=== PATIENT | female | born 1965 | race Caucasian/White ===

== ENCOUNTER 2024-10-30 09:00 | Outpatient (AMB) | payer MEDICAID, SELFPAY ==
[2024-10-30 10:02] VITALS: BP 116/74; PULSE 86; RESP 18; TEMP 35.9; O2SAT 96; BMI 42.5
--- NOTE | 2024-10-30 10:02 | ORTHONT_ITS ---
Vital signs 10/30/24 10:02 Height 1.78 m Height Method Stated Weight 134.433 kg Weight Measurement Method Standing Scale BMI 42.5 BP 116/74 Blood Pressure Source Automatic Cuff Blood Pressure Location Right Upper Arm Position Sitting Respiration 18 Pulse 86 Pulse Source Monitor Temp 96.7 F L Temp Source Temporal Artery Scan Pulse Oximetry (%) 96 Oxygen Delivery Method Room Air Med/Allergies Allergies & Medications Allergies codeine Allergy (Mild, Verified 10/30/24 10:04) Redness of Skin Sulfa (Sulfonamide Antibiotics) Allergy (Mild, Verified 10/30/24 10:04) Rash Penicillins Allergy (Unknown, Verified 10/30/24 10:04) Rash Medication Reconciliation apixaban 5 mg tablet (Eliquis) 5 mg PO BID 12/02/23 [History Confirmed 10/30/24] albuterol sulfate 90 mcg/actuation aerosol inhaler 2 puff inhalation QID PRN SOB 05/19/24 [History Confirmed 10/30/24] budesonide-formoterol HFA 160 mcg-4.5 mcg/actuation aerosol inhaler (Symbicort) 2 puff inhalation BID 05/19/24 [History Confirmed 10/30/24] clonazepam 1 mg tablet 1 mg PO QDAY 05/19/24 [History Confirmed 10/30/24] cyclobenzaprine 10 mg tablet 10 mg PO TID PRN Pain 05/19/24 [History Confirmed 10/30/24] famotidine 40 mg tablet 40 mg PO QDAY 05/19/24 [History Confirmed 10/30/24] fexofenadine 180 mg tablet (Allergy Relief (fexofenadine)) 180 mg PO QDAY 05/19/24 [History Confirmed 10/30/24] hydrocodone 10 mg-acetaminophen 325 mg tablet 1 tab PO PRN PRN Pain 05/19/24 [History Confirmed 10/30/24] metoprolol succinate 25 mg tablet,extended release 24 hr 25 mg PO QDAY 05/19/24 [History Confirmed 10/30/24] omeprazole 40 mg capsule,delayed release 40 mg PO QDAY 05/19/24 [History Confirmed 10/30/24] semaglutide 1 mg/dose (4 mg/3 mL) subcutaneous pen injector (Ozempic) 1 mg subcut QWEEK 05/19/24 [History Confirmed 10/30/24] Subjective Visit Visit for: new patient and knee Immunization / Flu Flu Vaccine in the Last 12 Months: No Flu Vaccine Exclusion Criteria: No Exclusion Criteria History of Present Illness Chief complaint: KNEE PAIN Dmitri is a pleasant 59-year-old female with bilateral knee pain. This been ongoing for over 10 years. She has tried knee braces and injections. She has a lso tried physical therapy. She has significant medical complications. She is trying to lose weight. Pain Pain level (0-10): 10 Pain duration: CONSTANT Pain location: inside (medial), outside (lateral), anterior and posterior Pain quality: sharp, dull and aching Pain timing: night, increases with activity and stairs Associated signs & symptoms: stiffness Ambulatory data Ambulatory device: none Treatments Improvement with previous injections: No Improvement with PT: No Improvement with NSAIDS: n/a Review of Systems Review of Systems: All systems negative unless otherwise noted in HPI. Exam Exam Patient is in no acute distress and is cooperative with the examination today. Breathing is nonlabored. In no respiratory distress. Bilateral extremities were evaluated and demonstrates sensation intact to light touch. Palpable pedal pulses are present. No significant edema is present. Bilateral hips were examined. The patient has no pain with log roll of the hips. Internal rotation to 30 degrees and external rotation to 30 degrees is painless. Negative FADIR. The left knee was examined. The left knee is in [varus] alignment. Range of motion from [0-115] degrees. Knee is stable to varus and valgus as well as AP translation with <5mm. Patient has a [negative] McMurrays. There is [no] pain with patellofemoral compression and [no] crepitus noted. The knee is [tender] to palpation [medially]. The right knee was also examined. The right knee is in [varus] alignment. Range of motion from [0-120] degrees. Knee is stable to varus and valgus as well as AP translation with <5mm. Patient has a [negative] McMurrays. There is [no] pain with patellofemoral compression and [no] crepitus noted. The knee is [tender] to palpation [medially]. Nonweightbearing x-rays were reviewed by me. This demonstrates bilateral knee arthritis. Assessment and Plan Problem List (1) Degenerative arthritis of knee, bilateral: Status: Acute Plan: Patient is a 59-year-old female with significant medical comorbidities including COPD, history of PE, aortic aneurysm, with bilateral knee pain and arthritis. She has a significant bilateral knee arthritis. We thus discussed conservative treatment options. We will do bilateral knee injections today. We also recommended weight loss Recommend knee cortisone injections as patient would like to proceed with conservative treatment at this time. The risks and benefits of the procedure were reviewed with the patient and patient gave verbal consent to continue with the procedure. Procedure: performed by Dr. Ramirez Using sterile technique the Bilateral knees were thoroughly prepped with alcohol, and approximately 1 cc of Kenalog 40 mg/mL and 4 cc of 1% lidocaine was injected into each knee without resistance into the medial tibial femoral joint space. The patient tolerated the procedure. Office Procedures GNS Level of Care Nursing/Assessment Patient Status: Established Patient Nursing Assessment/Reassesment: Medication Reconciliation, Update PMH in EMR and Vital Signs Coordination of Care: Complex Care/Chronic Disease 5 or more, Education Complex Pt/Fam, Consent,records obtained, informed consent, Results/Orders obtained and Staff clarify orders Established Patient Charge Established Patient Point Assignment: 105 Established Patient Point Charge: EP Level 3 (80-115) Surgical Proc/IM SQ injection Major Surgical Procedure: Yes (BILATERAL KNEE INJECTION ) Medication Given Medication Given Medication Given: Yes Documented Dose Given: 8 Route: Infiitration Medication Given Medication Given Medication Given: Yes Documented Dose Given: 8 Route: Infiitration Medication Given Medication Given Medication Given: Yes Documented Dose Given: 2 Route: Infiitration Medication Given Medication Given Medication Given: Yes Documented Dose Given: 2 Route: Infiitration Office Meds Xylocaine 10 mg/mL (1 %) injection solution Performing Provider: Devan Ramirez MD Performing Location: [facility] Administered by: Devan Ramirez MD on 10/30/24 12:02 Dose Route Admin Location Dispensed Lot Number Expiration Date [facility] [employer] 40 mL Infiltration 40 mL [id number] [employer] Xylocaine 10 mg/mL (1 %) injection solution Performing Provider: Devan Ramirez MD Performing Location: [facility] Administered by: Devan Ramirez MD on 10/30/24 12:02 Dose Route Admin Location Dispensed Lot Number Expiration Date [facility] [employer] 40 mL Infiltration 40 mL [id number] [employer] triamcinolone acetonide 40 mg/mL suspension for injection Performing Provider: Devan Ramirez MD Performing Location: [facility] Administered by: Devan Ramirez MD on 10/30/24 12:02 Dose Route Admin Location Dispensed Lot Number Expiration Date [place] [employer] 80 mg intra-articular 2 mL [id number] [employer] triamcinolone acetonide 40 mg/mL suspension for injection Performing Provider: Devan Ramirez MD Performing Location: [facility] Administered by: Devan Ramirez MD on 10/30/24 12:02 Dose Route Admin Location Dispensed Lot Number Expiration Date [place] [employer] 80 mg intra-articular 2 mL [id number] [employer] Past Medical History Past Medical History Have you ever been diagnosed with any of the following: Neurological Problems Seizures: No Migraine: Yes Cardiology Problems Angina: Yes Hypercholesterolemia: Yes Aneurysm: Yes Congestive Heart Failure: No Hypertension: Yes Respiratory Problems Chronic Obstructive Pulmonary Disease (COPD): Yes Asthma: Yes Bronchitis: Yes Emphysema: No Pneumonia: Yes Tuberculosis: No Smoking: No Smoking Exposure: No Stomache/Intestinal Problems Gastroesophageal Reflux Disease: Yes Genital/Urinary Problems Renal Disease: No Musculoskeletal Problems Fibromyalgia: Yes Endocrine Problems Diabetes Mellitus Type 1: No Diabetes Mellitus Type 2: No Blood Problems Sickle Cell Disease: No Psychologic Problems Anxiety: Yes Other Problems Blood Transfusions: No Blood Transfusion Reaction: No Anesthesia Reactions: No Chicken Pox: Yes Cancer: No
== END 2024-10-30 10:21 | disposition home or self-care (01) ==
LOC: HODSRG 09:00
PROVIDERS: PCP Nurse Practitioner Family; Referring Provider Nurse Practitioner Family; Supervising Provider Orthopaedic Surgery Adult Reconstructive Orthopaedic Surgery; Visit Provider Orthopaedic Surgery Adult Reconstructive Orthopaedic Surgery
DX: M17.0 Bilateral primary osteoarthritis of knee (principal); I10 Essential (primary) hypertension; E78.00 Pure hypercholesterolemia, unspecified; J44.89 Other specified chronic obstructive pulmonary disease; Z86.711 Personal history of pulmonary embolism; K21.9 Gastro-esophageal reflux disease without esophagitis
CPT/HCPCS: 20610; 99213; J3301; J3490; G0463

== ENCOUNTER → 2024-10-31 | Outpatient (CLI) | payer MEDICAID, SELFPAY ==
--- NOTE | 2024-10-31 14:00 | XR_ITS ---
Examination: MRI cervical spine without intravenous contrast Date and time of exam: October 31, 2024 1443 hrs. Indications: Neck pain 20 years radiating down both shoulders Technique: Multiple axial and sagittal sections of the cervical spine to been obtained. T2 weighted sagittal sections, TR 3, 270, TE 117 T1-weighted sagittal sections, TR 500, TE 11 T1-weighted axial sections, TR 607, TE 12, axial sections TR 18, TE 27 and T2 weighted transverse sections, TR 3920, TE 122. Findings: Adequate alignment cervical vertebral bodies on the lateral view Mild to moderate disc narrowing C4-C5, C5-C6, C6-C7 No cervical fracture Diffuse cervical disc desiccation No localized enlargement cervical cord C2-C3 no disc protrusion C3-C4 no disc protrusion C4-C5 3 mm central right paracentral osteophyte disc complex C5-C6 3 mm central subarticular osteophyte disc complex indenting the ventral margin cervical cord C6-C7 3 mm central subarticular osteophyte disc complex C7-T1 no disc protrusion Impression: Mild to moderate degenerative disc disease C4-C5, C5-C6, C6-C7 All of the axial images are degraded by patient motion C4-C5 Central right paracentral 3 mm osteophyte disc complex C5-C6 central subarticular 3 mm osteophyte disc complex C6-C7 central subarticular 3 mm osteophyte disc complex Recommend this patient return for nonmotion degraded axial images of the cervical spine
--- NOTE | 2024-10-31 14:30 | XR_ITS ---
Examination: MRI lumbar spine without contrast Date and time of exam: October 31, 2024 1502 hrs. Indications: Low back pain radiating down both legs 20 years Technique: Multiple MRI axial and sagittal sections lumbar spine. Sagittal T2-weighted images, TR 3500, TE 118 T1 weighted transverse sections, TR 688 T8.5, T2-weighted sagittal sections T1 weighted sagittal sections TR 621, TE 30 T2 axial sections, TR 4, 190, TE 84. Findings: Independent Sales Representative film lumbar dextroscoliosis 10 degrees Adequate alignment lumbar vertebral bodies on the lateral view Mild disc narrowing L3-L4 Diffuse lumbar disc desiccation No spondylolisthesis L5-S1 no disc protrusion L4-L5 no disc protrusion L3-L4 no disc protrusion L2-L3 no disc protrusion L1-L2 no disc protrusion Incidental note moderate right mild left renal parenchymal scar formation Impression: Diffuse lumbar degenerative disc disease No significant acquired spinal stenosis
== END | disposition home or self-care (01) ==
LOC: SMRI 14:15
PROVIDERS: PCP Nurse Practitioner Family; Referring Provider Nurse Practitioner Family; Visit Provider Nurse Practitioner Family
DX: M50.321 Other cervical disc degeneration at C4-C5 level (principal); M25.78 Osteophyte, vertebrae; M51.369 Other intervertebral disc degeneration, lumbar region without mention of lumbar back pain or lower extremity pain
CPT/HCPCS: 72141; 72148

== ENCOUNTER → 2024-11-03 | Outpatient (CLI) | payer MEDICAID, SELFPAY ==
--- NOTE | 2024-11-03 13:33 | XR_ITS ---
Examination: MRI thoracic spine without contrast. Date and time of exam: November 03, 2024 1409 hours INDICATIONS: Mid back pain 20 years radiating down both legs Technique: Multiple sagittal and axial images of the thoracic spine have been obtained. T1 weighted localizer, sagittal T2 weighted images, TR 30-50, TE 148, T1 weighted sagittal images, TR 650, TE 14, T2-weighted transverse images, TR 6770, TE 142 Findings: Moderately compression fracture T8, old Diffuse thoracic disc desiccation No focal disc protrusions impinging upon the thoracic cord No localized enlargement thoracic cord No abnormal marrow signal thoracic vertebral bodies Impression: Mild diffuse thoracic degenerative disc disease Moderate old compression fracture T8 No significant acquired spinal stenosis
--- NOTE | 2024-11-03 13:39 | XR_ITS ---
Examination: Bilateral knees 2 views Right lateral knee left lateral knee 2 views Right axial knee left axial knee 2 views TECHNIQUE: Bilateral AP knees standing single view, bilateral PA knees standing single view 30 degrees flexion Staining right lateral knee left lateral knee Right axial knee left axial knee 2 views, total 6 views Exam date and time: November 03, 2024 1425 hours INDICATIONS: Bilateral knee pain beginning 2 months ago. FINDINGS: Prominent osteopenia Bilateral moderate to advanced tricompartment osteoarthritis, most severe lateral joint spaces both knees No fracture or dislocation involving either knee Significant osteoarthritis patellofemoral joints IMPRESSION: Bilateral moderate to advanced tricompartment osteoarthritis
== END | disposition home or self-care (01) ==
PROVIDERS: PCP Nurse Practitioner Family; Referring Provider Nurse Practitioner Family; Visit Provider Nurse Practitioner Family
DX: M17.0 Bilateral primary osteoarthritis of knee (principal); M51.34 Other intervertebral disc degeneration, thoracic region; Z87.81 Personal history of (healed) traumatic fracture
CPT/HCPCS: 72146; 73565

== ENCOUNTER 2025-01-29 09:40 | Outpatient (AMB) | payer MEDICAID, SELFPAY ==
--- NOTE | 2025-01-29 10:02 | PD.ORTHCLVIS ---
Vital signs 01/29/25 10:03 Height 1.78 m Height Method Stated Weight 131.57 kg Weight Measurement Method Standing Scale BMI 41.5 BP 109/77 Blood Pressure Source Automatic Cuff Blood Pressure Location Right Lower Arm Position Sitting Respiration 19 Pulse 84 Pulse Source Monitor Temp 95.6 F L Temp Source Temporal Artery Scan Pulse Oximetry (%) 94 L Oxygen Delivery Method Room Air Med/Allergies Allergies & Medications Allergies codeine Allergy (Mild, Verified 01/29/25 10:03) Redness of Skin Sulfa (Sulfonamide Antibiotics) Allergy (Mild, Verified 01/29/25 10:03) Rash Penicillins Allergy (Unknown, Verified 01/29/25 10:03) Rash Medication Reconciliation apixaban 5 mg tablet (Eliquis) 5 mg PO BID 12/02/23 [History Confirmed 01/29/25] albuterol sulfate 90 mcg/actuation aerosol inhaler 2 puff inhalation QID PRN SOB 05/19/24 [History Confirmed 01/29/25] budesonide-formoterol HFA 160 mcg-4.5 mcg/actuation aerosol inhaler (Symbicort) 2 puff inhalation BID 05/19/24 [History Confirmed 01/29/25] clonazepam 1 mg tablet 1 mg PO QDAY 05/19/24 [History Confirmed 01/29/25] cyclobenzaprine 10 mg tablet 10 mg PO TID PRN Pain 05/19/24 [History Confirmed 01/29/25] famotidine 40 mg tablet 40 mg PO QDAY 05/19/24 [History Confirmed 01/29/25] fexofenadine 180 mg tablet (Allergy Relief (fexofenadine)) 180 mg PO QDAY 05/19/24 [History Confirmed 01/29/25] hydrocodone 10 mg-acetaminophen 325 mg tablet 1 tab PO PRN PRN Pain 05/19/24 [History Confirmed 01/29/25] metoprolol succinate 25 mg tablet,extended release 24 hr 25 mg PO QDAY 05/19/24 [History Confirmed 01/29/25] omeprazole 40 mg capsule,delayed release 40 mg PO QDAY 05/19/24 [History Confirmed 01/29/25] semaglutide 1 mg/dose (4 mg/3 mL) subcutaneous pen injector (Ozempic) 1 mg subcut QWEEK 05/19/24 [History Confirmed 01/29/25] Exam Exam Patient is in no acute distress and is cooperative with the examination today. Breathing is nonlabored. In no respiratory distress. Bilateral extremities were evaluated and demonstrates sensation intact to light touch. Palpable pedal pulses are present. No significant edema is present. Bilateral hips were examined. The patient has no pain with log roll of the hips. Internal rotation to 30 degrees and external rotation to 30 degrees is painless. Negative FADIR. The left knee was examined. The left knee is in [varus] alignment. Range of motion from [0-115] degrees. Knee is stable to varus and valgus as well as AP translation with <5mm. Patient has a [negative] McMurrays. There is [no] pain with patellofemoral compression and [no] crepitus noted. The knee is [tender] to palpation [medially]. The right knee was also examined. The right knee is in [varus] alignment. Range of motion from [0-120] degrees. Knee is stable to varus and valgus as well as AP translation with <5mm. Patient has a [negative] McMurrays. There is [no] pain with patellofemoral compression and [no] crepitus noted. The knee is [tender] to palpation [medially]. Nonweightbearing x-rays were reviewed by me. This demonstrates bilateral knee arthritis. Assessment and Plan Problem List (1) Degenerative arthritis of knee, bilateral: Status: Acute Plan: Patient is a 59-year-old female with significant medical comorbidities including COPD, history of PE, aortic aneurysm, with bilateral knee pain and arthritis. She has a significant bilateral knee arthritis. We thus discussed conservative treatment options. We will do bilateral knee injections today. We also recommended weight loss Recommend knee cortisone injections as patient would like to proceed with conservative treatment at this time. The risks and benefits of the procedure were reviewed with the patient and patient gave verbal consent to continue with the procedure. Procedure: performed by Dr. Ramirez Using sterile technique the Bilateral knees were thoroughly prepped with alcohol, and approximately 1 cc of Kenalog 40 mg/mL and 4 cc of 1% lidocaine was injected into each knee without resistance into the medial tibial femoral joint space. The patient tolerated the procedure. Office Procedures GNS Level of Care Nursing/Assessment Patient Status: Established Patient Nursing Assessment/Reassesment: Medication Reconciliation, Update PMH in EMR and Vital Signs Coordination of Care: Complex Care and Chronic Disease 1-5, Education Complex Pt/Fam, Consent,records obtained, informed consent, Results/Orders obtained and Staff clarify orders Established Patient Charge Established Patient Point Assignment: 95 Established Patient Point Charge: EP Level 3 (80-115) Surgical Proc/IM SQ injection Major Surgical Procedure: Yes (KNEE INJECTION) MA Intake Visit Data Collection New Patient or Established: Established Patient (seen at [facility] within 3 years) Reason for Visit:: 3MTH F/U BILATERAL KNEE INJECTIONS Seen by Clinical Staff ONLY (RN/MA): No Manager Market Research Required: No PCP or OBGYN visit in last 3 months: Yes Hx Now: No Do You Feel Safe at Home: Yes Authorities Contacted: N/A Questionairres Past Medical History Past Medical History Have you ever been diagnosed with any of the following: Neurological Problems Seizures: No Migraine: Yes Cardiology Problems Angina: Yes Hypercholesterolemia: Yes Aneurysm: Yes Congestive Heart Failure: No Hypertension: Yes Respiratory Problems Chronic Obstructive Pulmonary Disease (COPD): Yes Asthma: Yes Bronchitis: Yes Emphysema: No Pneumonia: Yes Tuberculosis: No Smoking: No Smoking Exposure: No Stomache/Intestinal Problems Gastroesophageal Reflux Disease: Yes Genital/Urinary Problems Renal Disease: No Musculoskeletal Problems Fibromyalgia: Yes Endocrine Problems Diabetes Mellitus Type 1: No Diabetes Mellitus Type 2: No Blood Problems Sickle Cell Disease: No Psychologic Problems Anxiety: Yes Other Problems Blood Transfusions: No Blood Transfusion Reaction: No Anesthesia Reactions: No Chicken Pox: Yes Cancer: No Subjective Visit Visit for: follow up visit, knee and injections Immunization / Flu Flu Vaccine in the Last 12 Months: No Flu Vaccine Exclusion Criteria: No Exclusion Criteria History of Present Illness Chief complaint: Bilateral knee pain Patient is a 60-year-old female with bilateral knee pain and bilateral knee arthritis. We discussed nonoperative and operative options. She would like repeat injections as the last injections have worked for 3 months Pain Pain level (0-10): 8 Pain duration: ALL DAY Pain location: inside (medial) and anterior Pain quality: sharp, dull and aching Pain timing: increases with activity Associated signs & symptoms: none Ambulatory data Ambulatory device: none Treatments Improvement with previous injections: Yes Improvement with PT: No Improvement with NSAIDS: no Review of Systems Review of Systems: All systems negative unless otherwise noted in HPI.
[2025-01-29 10:03] VITALS: BP 109/77; PULSE 84; RESP 19; TEMP 35.3; O2SAT 94; BMI 41.5
== END 2025-01-29 10:14 | disposition home or self-care (01) ==
LOC: HODSRG 09:40
PROVIDERS: PCP Nurse Practitioner Family; Referring Provider Nurse Practitioner Family; Supervising Provider Orthopaedic Surgery Adult Reconstructive Orthopaedic Surgery; Visit Provider Orthopaedic Surgery Adult Reconstructive Orthopaedic Surgery
DX: M25.562 Pain in left knee (principal); M25.561 Pain in right knee; M17.0 Bilateral primary osteoarthritis of knee
CPT/HCPCS: 20610; 99213; J3301; J3490; G0463

== ENCOUNTER 2025-05-04 10:15 | Outpatient (AMB) | payer MEDICAID, SELFPAY ==
[2025-05-04 10:32] VITALS: BP 115/80; PULSE 71; RESP 17; TEMP 36.8; O2SAT 92; BMI 40.4
--- NOTE | 2025-05-04 10:32 | ORTHONT_ITS ---
Vital signs 05/04/25 10:32 Height 1.78 m Height Method Stated Weight 128.026 kg Weight Measurement Method Standing Scale BMI 40.4 BP 115/80 Blood Pressure Source Automatic Cuff Blood Pressure Location Right Upper Arm Position Sitting Respiration 17 Pulse 71 Pulse Source Monitor Temp 98.2 F Temp Source Temporal Artery Scan Pulse Oximetry (%) 92 L Oxygen Delivery Method Room Air Med/Allergies Allergies & Medications Allergies codeine Allergy (Mild, Verified 05/04/25 10:33) Redness of Skin Sulfa (Sulfonamide Antibiotics) Allergy (Mild, Verified 05/04/25 10:33) Rash Penicillins Allergy (Unknown, Verified 05/04/25 10:33) Rash Medication Reconciliation apixaban 5 mg tablet (Eliquis) 5 mg PO BID 12/02/23 [History Confirmed 05/04/25] albuterol sulfate 90 mcg/actuation aerosol inhaler 2 puff inhalation QID PRN SOB 05/19/24 [History Confirmed 05/04/25] budesonide-formoterol HFA 160 mcg-4.5 mcg/actuation aerosol inhaler (Symbicort) 2 puff inhalation BID 05/19/24 [History Confirmed 05/04/25] clonazepam 1 mg tablet 1 mg PO QDAY 05/19/24 [History Confirmed 05/04/25] cyclobenzaprine 10 mg tablet 10 mg PO TID PRN Pain 05/19/24 [History Confirmed 05/04/25] famotidine 40 mg tablet 40 mg PO QDAY 05/19/24 [History Confirmed 05/04/25] fexofenadine 180 mg tablet (Allergy Relief (fexofenadine)) 180 mg PO QDAY 05/19/24 [History Confirmed 05/04/25] hydrocodone 10 mg-acetaminophen 325 mg tablet 1 tab PO PRN PRN Pain 05/19/24 [History Confirmed 05/04/25] metoprolol succinate 25 mg tablet,extended release 24 hr 25 mg PO QDAY 05/19/24 [History Confirmed 05/04/25] omeprazole 40 mg capsule,delayed release 40 mg PO QDAY 05/19/24 [History Confirmed 05/04/25] semaglutide 1 mg/dose (4 mg/3 mL) subcutaneous pen injector (Ozempic) 1 mg subcut QWEEK 05/19/24 [History Confirmed 05/04/25] Exam Exam Patient is in no acute distress and is cooperative with the examination today. Breathing is nonlabored. In no respiratory distress. Bilateral extremities were evaluated and demonstrates sensation intact to light touch. Palpable pedal pulses are present. No significant edema is present. Bilateral hips were examined. The patient has no pain with log roll of the hips. Internal rotation to 30 degrees and external rotation to 30 degrees is painless. Negative FADIR. The left knee was examined. The left knee is in [varus] alignment. Range of motion from [0-115] degrees. Knee is stable to varus and valgus as well as AP translation with <5mm. Patient has a [negative] McMurrays. There is [no] pain with patellofemoral compression and [no] crepitus noted. The knee is [tender] to palpation [medially]. The right knee was also examined. The right knee is in [varus] alignment. Range of motion from [0-120] degrees. Knee is stable to varus and valgus as well as AP translation with <5mm. Patient has a [negative] McMurrays. There is [no] pain with patellofemoral compression and [no] crepitus noted. The knee is [tender] to palpation [medially]. Nonweightbearing x-rays were reviewed by me. This demonstrates bilateral knee arthritis. Assessment and Plan Problem List (1) Degenerative arthritis of knee, bilateral: Status: Acute Plan: Patient is a 59-year-old female with significant medical comorbidities including COPD, history of PE, aortic aneurysm, with bilateral knee pain and arthritis. She has a significant bilateral knee arthritis. We thus discussed conservative treatment options. We will do bilateral knee injections today. We also recommended weight loss Recommend knee cortisone injections as patient would like to proceed with conservative treatment at this time. The risks and benefits of the procedure were reviewed with the patient and patient gave verbal consent to continue with the procedure. Procedure: performed by Dr. Ramirez Using sterile technique the Bilateral knees were thoroughly prepped with alcohol, and approximately 1 cc of Kenalog 40 mg/mL and 4 cc of 1% lidocaine was injected into each knee without resistance into the medial tibial femoral joint space. The patient tolerated the procedure. Office Procedures GNS Level of Care Nursing/Assessment Patient Status: Established Patient Nursing Assessment/Reassesment: Medication Reconciliation, Update PMH in EMR and Vital Signs Coordination of Care: Complex Care and Chronic Disease 1-5, Education Complex Pt/Fam, Consent,records obtained, informed consent, Results/Orders obtained and Staff clarify orders Established Patient Charge Established Patient Point Assignment: 95 Established Patient Point Charge: EP Level 3 (80-115) Medication Given Medication Given Medication Given: Yes Documented Dose Given: 8 Route: Infiitration Medication Given Medication Given Medication Given: Yes Documented Dose Given: 2 Route: Infiitration Office Meds Xylocaine 10 mg/mL (1 %) injection solution Performing Provider: Devan Ramirez MD Performing Location: [facility] Administered by: Devan Ramirez MD on 05/04/25 10:34 Dose Route Admin Location Dispensed Lot Number Expiration Date 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 [employer] Operator 40 mL Infiltration 40 mL triamcinolone acetonide 40 mg/mL suspension for injection Performing Provider: Devan Ramirez MD Performing Location: [facility] Administered by: Devan Ramirez MD on 05/04/25 10:34 Dose Route Admin Location Dispensed Lot Number Expiration Date 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 80 mg intra-articular 80 mL MA Intake Visit Data Collection New Patient or Established: Established Patient (seen at [facility] within 3 years) Reason for Visit:: 3 MONTH BILAT KNEE INJECTION FOLLOW UP Seen by Clinical Staff ONLY (RN/MA): No Button Tacker Required: No PCP or OBGYN visit in last 3 months: Yes Hx Now: No Do You Feel Safe at Home: Yes Authorities Contacted: N/A Questionairres Past Medical History Past Medical History Have you ever been diagnosed with any of the following: Neurological Problems Seizures: No Migraine: Yes Cardiology Problems Angina: Yes Hypercholesterolemia: Yes Aneurysm: Yes Congestive Heart Failure: No Hypertension: Yes Respiratory Problems Chronic Obstructive Pulmonary Disease (COPD): Yes Asthma: Yes Bronchitis: Yes Emphysema: No Pneumonia: Yes Tuberculosis: No Smoking: No Smoking Exposure: No Stomache/Intestinal Problems Gastroesophageal Reflux Disease: Yes Genital/Urinary Problems Renal Disease: No Musculoskeletal Problems Fibromyalgia: Yes Endocrine Problems Diabetes Mellitus Type 1: No Diabetes Mellitus Type 2: No Blood Problems Sickle Cell Disease: No Psychologic Problems Anxiety: Yes Other Problems Blood Transfusions: No Blood Transfusion Reaction: No Anesthesia Reactions: No Chicken Pox: Yes Cancer: No Subjective Visit Visit for: follow up visit, knee and injections Immunization / Flu Flu Vaccine in the Last 12 Months: No Flu Vaccine Exclusion Criteria: No Exclusion Criteria and Already Received History of Present Illness Chief complaint: Bilateral knee pain Patient is a 60-year-old female with bilateral knee pain and bilateral knee arthritis. We discussed nonoperative and operative options. She would like repeat injections as the last injections have worked for 3 months Personal History Red flag PMH: none Pain Pain level (0-10): 8 Pain duration: ALL DAY Pain location: inside (medial) and anterior Pain quality: sharp, dull, aching, shocking and electric Pain timing: night and increases with activity Associated signs & symptoms: numbness, weakness, stiffness and none Ambulatory data Ambulatory device: none Walking distance (minutes): 1 Treatments Number of previous injections: 3 Improvement with previous injections: Yes Number of Physical Therapy sessions: 0 Improvement with PT: No Improvement with NSAIDS: no Review of Systems Review of Systems: All systems negative unless otherwise noted in HPI.
== END 2025-05-04 10:43 | disposition home or self-care (01) ==
PROVIDERS: PCP Nurse Practitioner Family; Referring Provider Nurse Practitioner Family; Supervising Provider Orthopaedic Surgery Adult Reconstructive Orthopaedic Surgery; Visit Provider Orthopaedic Surgery Adult Reconstructive Orthopaedic Surgery
DX: M17.0 Bilateral primary osteoarthritis of knee (principal); J44.9 Chronic obstructive pulmonary disease, unspecified; Z86.711 Personal history of pulmonary embolism; M25.562 Pain in left knee; M25.561 Pain in right knee; E78.00 Pure hypercholesterolemia, unspecified; K21.9 Gastro-esophageal reflux disease without esophagitis
CPT/HCPCS: 20610; 99213; J3301; J3490; G0463

== ENCOUNTER 2025-05-28 14:42 | Emergency (ER) | payer MEDICAID, SELFPAY ==
[2025-05-28 15:35] VITALS: BP 127/89; PULSE 73; RESP 20; TEMP 37.2; O2SAT 95; BMI 40.1
--- NOTE | 2025-05-28 16:22 | XR_ITS ---
Examination: Foot, left, 3 views Technique: AP, oblique, lateral views foot, 3 views Date and time of exam: May 28, 2025 1624 hours INDICATIONS: Injury to foot today, foot pain. FINDINGS: 3 mm chip fracture off the base of the proximal phalanx fifth digit Fractures through the mid and distal aspect proximal phalanx fifth digit without significant offset No foreign body No dislocation Large plantar posterior bony calcaneal spurs IMPRESSION: Fractures involving the proximal phalanx fifth digit as above
--- NOTE | 2025-05-28 16:23 | PD.EDRME ---
Rapid Medical Screening Exam E Arrival date/time: 05/28/25 14:42 This is a 60-year-old female that comes into the emergency room with complaints of contusion to her left foot by the fifth digit. Patient states she is on blood thinners. Patient has a small hematoma to her right fifth digit. Patient denies any other injuries. I have greeted and performed a focused initial assessment of this patient. Initial appropriate labs ordered at this time. A comprehensive ED assessment and evaluation of the patient and analysis of all test and completion of medical decision making process will be conducted by additional ED provider. Chief Complaint: Ankle/Foot Injury Time Seen by Provider: 05/28/25 14:53 Vital signs: Vital Signs Temperature 99.0 F 05/28/25 15:35 Pulse Rate 73 05/28/25 15:35 Respiratory Rate 20 05/28/25 15:35 Blood Pressure 127/89 H 05/28/25 15:35 Pulse Oximetry (%) 95 05/28/25 15:35 Oxygen Delivery Method Room Air 05/28/25 15:35
[2025-05-28] MEDS: HYDROcodone/APAP 5/325 TABLET 1 TAB PO (16:37)
--- NOTE | 2025-05-28 18:21 | PD.EDADULT ---
ED General RME/HPI General Chief complaint: Ankle/Foot Injury Stated complaint: Left foot, last 2 toes bruised Time Seen by Provider: 05/28/25 14:53 Arrival date/time: 05/28/25 14:42 RME / HPI RME / HPI narrative: 05/28/25 14:42 This is a 60-year-old female that comes into the emergency room with complaints of contusion to her left foot by the fifth digit. Patient states she is on blood thinners. Patient has a small hematoma to her right fifth digit. Patient denies any other injuries. I have greeted and performed a focused initial assessment of this patient. Initial appropriate labs ordered at this time. A comprehensive ED assessment and evaluation of the patient and analysis of all test and completion of medical decision making process will be conducted by additional ED provider. Related Data Home Medications ?Medication ?Instructions ?Recorded ?Confirmed apixaban 5 mg tablet (Eliquis) 5 mg PO BID 12/02/23 05/04/25 albuterol sulfate 90 mcg/actuation 2 puff inhalation QID PRN SOB 05/19/24 05/04/25 aerosol inhaler budesonide-formoterol HFA 160 2 puff inhalation BID 05/19/24 05/04/25 mcg-4.5 mcg/actuation aerosol inhaler (Symbicort) clonazepam 1 mg tablet 1 mg PO QDAY 05/19/24 05/04/25 cyclobenzaprine 10 mg tablet 10 mg PO TID PRN Pain 05/19/24 05/04/25 famotidine 40 mg tablet 40 mg PO QDAY 05/19/24 05/04/25 fexofenadine 180 mg tablet 180 mg PO QDAY 05/19/24 05/04/25 (Allergy Relief (fexofenadine)) hydrocodone 10 mg-acetaminophen 1 tab PO PRN PRN Pain 05/19/24 05/04/25 325 mg tablet metoprolol succinate 25 mg 25 mg PO QDAY 05/19/24 05/04/25 tablet,extended release 24 hr omeprazole 40 mg capsule,delayed 40 mg PO QDAY 05/19/24 05/04/25 release semaglutide 1 mg/dose (4 mg/3 mL) 1 mg subcut QWEEK 05/19/24 05/04/25 subcutaneous pen injector (Ozempic) Previous Rx's ?Medication ?Instructions ?Recorded hydrocodone 5 mg-acetaminophen 325 1 tab PO Q8H PRN pain #14 tabs 05/28/25 mg tablet Allergies Allergy/AdvReac Type Severity Reaction Status Date / Time codeine Allergy Mild Redness of Verified 05/28/25 14:47 Skin Sulfa (Sulfonamide Allergy Mild Rash Verified 05/28/25 14:47 Antibiotics) Penicillins Allergy Unknown Rash Verified 05/28/25 14:47 Review of Systems Review of Systems Systems Reviewed: All systems reviewed, normal except as documented ED Exam Narrative Physical exam: Physical Exam GENERAL: NAD, AAOx3 HEENT: Moist mucosa. Eyes open, symmetrical, & clear CARDIO: Heart RRR, no obvious murmurs PULM: No noted coughing/dyspnea CTA B/L, no R/W/R GI: Abdomen soft, nondistended, no pain on palpation. BSx4 SKIN/MSK/EXT: LLE fith toe bruised, hematoma on lefth lower fith digit, pain on palpation. Pedal pulses present B/L NEURO: AAOx3, no focal neuro deficits, able to move all 4 extremities Course Quality Measures none Orders Category Date Time Status XR foot comp LT min 3V Stat Exams 05/28/25 16:22 Completed HYDROcodone*/APAP 5/325 [Columb[place] 5/325] Med 05/28/25 16:22 Discontinued 1 tab PO X1 ONE Vital Signs Vital signs: Vital Signs Temperature 99.0 F 05/28/25 15:35 Pulse Rate 73 05/28/25 15:35 Respiratory Rate 20 05/28/25 15:35 Blood Pressure 127/89 H 05/28/25 15:35 Pulse Oximetry (%) 95 05/28/25 15:35 Oxygen Delivery Method Room Air 05/28/25 15:35 Discharge Plan Plan Patient Disposition: HOME (Self Care) Prescriptions/Referrals Prescriptions/Med Rec: New hydrocodone-acetaminophen 5-325 mg tablet 1 tab PO Q8H MDD 3 PRN (Reason: pain) Qty: 14 0RF No Action Eliquis 5 mg tablet 5 mg PO BID cyclobenzaprine 10 mg tablet 10 mg PO TID PRN (Reason: Pain) Patient Comments: TAKE 1 TABLET BY MOUTH THREE TIMES A DAY NEEDED FOR PAIN famotidine 40 mg tablet 40 mg PO QDAY Patient Comments: TAKE 1 TABLET BY MOUTH EVERY DAY clonazepam 1 mg tablet 1 mg PO QDAY Patient Comments: TAKE 1 TABLET BY MOUTH TWICE A DAY NEEDED fexofenadine [Allergy Relief (fexofenadine)] 180 mg tablet 180 mg PO QDAY Patient Comments: TAKE 1 TABLET BY MOUTH DAILY DURING ALLERGY SEASON hydrocodone-acetaminophen 10-325 mg tablet 1 tab PO PRN PRN (Reason: Pain) Patient Comments: TAKE 1 TABLET BY MOUTH 3 TIMES A DAY NEEDED FOR PAIN omeprazole 40 mg capsule,delayed release(DR/EC) 40 mg PO QDAY metoprolol succinate 25 mg tablet extended release 24 hr 25 mg PO QDAY Patient Comments: TAKE 1 TABLET BY MOUTH EVERY DAY albuterol sulfate 90 mcg/actuation HFA aerosol inhaler 2 puff INHALATION QID PRN (Reason: SOB) Patient Comments: INHALE 2 PUFFS BY MOUTH EVERY 4 TO EVERY 6 HOURS NEEDED FOR SHORTNESS OF BREATH . budesonide-formoterol [Symbicort] 160-4.5 mcg/actuation HFA aerosol inhaler 2 puff INHALATION BID Patient Comments: GIVE 2 PUFF BY MOUTH 2 TIMES A DAY Ozempic 1 mg/dose (4 mg/3 mL) pen injector 1 mg SUBCUT QWEEK Patient Comments: INJECT 1MG SUBCUTANEOUSLY ONCE WEEKLY Referrals: Stacey Orona CONDUIT BENDER [Primary Care Provider] - In 1 week Problem List Clinical Impression: Broken toe Patient/Caregiver Discharge Instructions Education Materials: ED Fracture, Foot, ED Fracture, Toe, Closed Additional Instructions: 1) you have been prescribed [place] for pain, please take this medication as prescribed max dose in a day 3 pills. 2) Avoid weight bearing for prolonged periods of time 3) Your toe is going to be splinted with sven taped with the adjacent toe. 4) Please see your private doctor within 1 week of discharge and get referall with your orthopedic surgeon. 5) Should any symptoms recur or worsen patient is instructed to return to the ED. Print Language: Bengali Stand Alone Forms: [employer] Info., Patient Portal Info Letter MDM Narrative MDM hospital course: 60 y/o F with PMhx of PE, COPD (not on home o2), asthma, tobacco use disorder, hypertension, chronic pain syndrome/fibromyalgia who came to emergency room with complaints of contusion to her left foot by the fifth digit. Patient states she is on blood thinners. Patient has a small hematoma to her right fifth digit. Patient denies any other injuries Patient was prescribed some pain medication and had her toe taped to the adjacent toe as part of splinting. Patient at this time is stable for discharge. Clinical Information Provided by none Medical Records Reviewed [facility] Chronic Illness/Social Conditions which may negatively complicate care or outcome(s)-explain: CHF/CAD/Cardiac illness EKG EKG not done Lab Interpretation Labs: none Imaging Radiology reports / interpretation(s): See radiology report Medication Administration(s) Medication Administration History Discontinued Medications Hydrocodone Bitart/Acetaminophen (Hydrocodone/Apap 5/325 Tablet) 1 tab PO X1 ONE Stop: 05/28/25 16:23 Last Admin: 05/28/25 16:37 Dose: 1 tab Documented By: DUKE Diagnosis Differential diagnosis: Broken fifth toe, fifth toe fracture Dispositon Disposition: Discharge Home
[2025-05-28 18:57] VITALS: BP 132/72; PULSE 72; RESP 18; TEMP 36.7; O2SAT 99
== END 2025-05-28 18:58 | disposition home or self-care (01) ==
PROVIDERS: Emergency Provider Student in an Organized Health Care Education/Training Program; PCP Nurse Practitioner Family
DX: S92.515A Nondisplaced fracture of proximal phalanx of left lesser toe(s), initial encounter for closed fracture (principal); X58.XXXA Exposure to other specified factors, initial encounter
CPT/HCPCS: 73630; 99283; A9270

== ENCOUNTER 2025-08-17 15:26 | Outpatient (AMB) | payer MEDICAID, SELFPAY ==
[2025-08-17 15:40] VITALS: BP 95/66; PULSE 80; RESP 18; TEMP 34.8; O2SAT 87; BMI 41.5
--- NOTE | 2025-08-17 15:40 | ORTHONT_ITS ---
Vital signs 08/17/25 15:40 Height 1.75 m Height Method Measured Weight 127.204 kg Weight Measurement Method Standing Scale BMI 41.5 BP 95/66 Blood Pressure Source Automatic Cuff Blood Pressure Location Left Upper Arm Position Sitting Respiration 18 Pulse 80 Pulse Source Monitor Temp 94.7 F L Temp Source Temporal Artery Scan Pulse Oximetry (%) 87 L Oxygen Delivery Method Room Air Med/Allergies Allergies & Medications Allergies codeine Allergy (Mild, Verified 08/17/25 15:41) Redness of Skin Sulfa (Sulfonamide Antibiotics) Allergy (Mild, Verified 08/17/25 15:41) Rash Penicillins Allergy (Unknown, Verified 08/17/25 15:41) Rash Medication Reconciliation apixaban 5 mg tablet (Eliquis) 5 mg PO BID 12/02/23 [History Confirmed 08/17/25] albuterol sulfate 90 mcg/actuation aerosol inhaler 2 puff inhalation QID PRN SOB 05/19/24 [History Confirmed 08/17/25] budesonide-formoterol HFA 160 mcg-4.5 mcg/actuation aerosol inhaler (Symbicort) 2 puff inhalation BID 05/19/24 [History Confirmed 08/17/25] clonazepam 1 mg tablet 1 mg PO QDAY 05/19/24 [History Confirmed 08/17/25] cyclobenzaprine 10 mg tablet 10 mg PO TID PRN Pain 05/19/24 [History Confirmed 08/17/25] famotidine 40 mg tablet 40 mg PO QDAY 05/19/24 [History Confirmed 08/17/25] fexofenadine 180 mg tablet (Allergy Relief (fexofenadine)) 180 mg PO QDAY 05/19/24 [History Confirmed 08/17/25] hydrocodone 10 mg-acetaminophen 325 mg tablet 1 tab PO PRN PRN Pain 05/19/24 [History Confirmed 08/17/25] metoprolol succinate 25 mg tablet,extended release 24 hr 25 mg PO QDAY 05/19/24 [History Confirmed 08/17/25] omeprazole 40 mg capsule,delayed release 40 mg PO QDAY 05/19/24 [History Confirmed 08/17/25] semaglutide 1 mg/dose (4 mg/3 mL) subcutaneous pen injector (Ozempic) 1 mg subcut QWEEK 05/19/24 [History Confirmed 08/17/25] hydrocodone 5 mg-acetaminophen 325 mg tablet 1 tab PO Q8H PRN pain #14 tabs 05/28/25 [Rx Confirmed 08/17/25] Exam Exam Patient is in no acute distress and is cooperative with the examination today. Breathing is nonlabored. In no respiratory distress. Bilateral extremities were evaluated and demonstrates sensation intact to light touch. Palpable pedal pulses are present. No significant edema is present. Bilateral hips were examined. The patient has no pain with log roll of the hips. Internal rotation to 30 degrees and external rotation to 30 degrees is painless. Negative FADIR. The left knee was examined. The left knee is in [varus] alignment. Range of motion from [0-115] degrees. Knee is stable to varus and valgus as well as AP t ranslation with <5mm. Patient has a [negative] McMurrays. There is [no] pain with patellofemoral compression and [no] crepitus noted. The knee is [tender] to palpation [medially]. The right knee was also examined. The right knee is in [varus] alignment. Range of motion from [0-120] degrees. Knee is stable to varus and valgus as well as AP translation with <5mm. Patient has a [negative] McMurrays. There is [no] pain with patellofemoral compression and [no] crepitus noted. The knee is [tender] to palpation [medially]. Nonweightbearing x-rays were reviewed by me. This demonstrates bilateral knee arthritis. Assessment and Plan Problem List (1) Degenerative arthritis of knee, bilateral: Status: Acute Plan: ASSESSMENT AND PLAN 1. Bilateral knee pain: The bilateral knee pain is likely due to osteoarthritis, as evidenced by the bon e-on-bone condition in both knees. Given the extensive medical comorbidities and current use of blood thinners, the administration of anti-inflammatory medications is not advisable. Cortisone injections were administered today to alleviate the pain. Tylenol was recommended for pain management. The patient inquired about receiving injections every 60 days, but it was advised against due to the standard protocol. The patient was educated on the limitations of using NSAIDs due to blood thinners and the potential side effects of other medications. The goal is to manage pain effectively while minimizing risks associated with her comorbidities. Assessment Assessment: Recommend knee cortisone injection as patient would like to proceed with conservative treatment at this time. The risks and benefits of the procedure were reviewed with the patient and patient gave verbal consent to continue with the procedure. Procedure: performed by Dr. Ramirez Using sterile technique the Right knee was thoroughly prepped with alcohol, and approximately 1 cc of Depo-Medrol 80mg/mL and 4 cc of 0.2% ropivacaine was injected without resistance into the medial tibial femoral joint space. The patient tolerated the procedure. Recommend knee cortisone injection as patient would like to proceed with conservative treatment at this time. The risks and benefits of the procedure were reviewed with the patient and patient gave verbal consent to continue with the procedure. Procedure: performed by Dr. Ramirez Using sterile technique the leftknee was thoroughly prepped with alcohol, and approximately 1 cc of Depo- Medrol 80mg/mL and 4 cc of 0.2% ropivacaine was injected without resistance into the medial tibial femoral joint space. The patient tolerated the procedure. Office Procedures GNS Level of Care Nursing/Assessment Patient Status: Established Patient Nursing Assessment/Reassesment: Medication Reconciliation, Update PMH in EMR and Vital Signs Coordination of Care: Complex Care and Chronic Disease 1-5, Education Complex Pt/Fam, Consent,records obtained, informed consent, Results/Orders obtained and Staff clarify orders Established Patient Charge Established Patient Point Assignment: 95 Established Patient Point Charge: EP Level 3 (80-115) Surgical Proc/IM SQ injection Minor Surgical Procedure: Yes (KNEE INJECTION) Medication Given Medication Given Medication Given: Yes Documented Dose Given: 1 Route: Infiitration Medication Given Medication Given Medication Given: Yes Documented Dose Given: 1 Route: Infiitration Medication Given Medication Given Medication Given: Yes Documented Dose Given: 4 Route: Infiitration Medication Given Medication Given Medication Given: Yes Documented Dose Given: 4 Route: Infiitration Office Meds methylprednisolone acetate 80 mg/mL suspension for injection Performing Provider: Devan Ramirez MD Performing Location: [facility] Administered by: Devan Ramirez MD on 08/17/25 15:59 Dose Route Admin Location Dispensed Lot Number Expiration Date Pack age [facility] Riveting Machine Operator Automatic 80 mg intra-articular KNEE 1 mL [id number] 10/24/26 [address]-3 7 [id number] [employer] methylprednisolone acetate 80 mg/mL suspension for injection Performing Provider: Devan Ramirez MD Performing Location: [facility] Administered by: Devan Ramirez MD on 08/17/25 15:59 Dose Route Admin Location Dispensed Lot Number Expiration Date Pack age [place] [employer] Riv[employer] Machine Operator Automatic 80 mg intra-articular KNEE 1 mL [id number] 10/24/26 [address]-3 7 [id number] [employer] ropivacaine (PF) 2 mg/mL (0.2 %) injection solution Performing Provider: Devan Ramirez MD Performing Location: [facility] Administered by: Devan Ramirez MD on 08/17/25 15:59 Dose Route Admin Location Dispensed Lot Number Expiration Date Pack age [place] NDC Riveting Machine Operator Automatic 20 mL Infiltration KNEE 20 mL [id number] 12/25/27 71752-451-21 [id number] [facility] ropivacaine (PF) 2 mg/mL (0.2 %) injection solution Performing Provider: Devan Ramirez MD Performing Location: [facility] Administered by: Devan Ramirez MD on 08/17/25 15:59 Dose Route Admin Location Dispensed Lot Number Expiration Date Pack age NDC NDC Riveting Machine Operator Automatic 20 mL Infiltration KNEE 20 mL [id number] 12/25/27 67001-919-43 [id number] [facility] Intake Visit Data Collection New Patient or Established: Established Patient (seen at [facility] within 3 years) Reason for Visit:: 3 MONTH BILAT KNEE INJECTION FOLLOW UP Seen by Clinical Staff ONLY (RN/MA): No Projects Manager Required: No PCP or OBGYN visit in last 3 months: Yes Hx Now: No Do You Feel Safe at Home: Yes Authorities Contacted: N/A Questionairres Past Medical History Past Medical History Have you ever been diagnosed with any of the following: Neurological Problems Seizures: No Migraine: Yes Cardiology Problems Angina: Yes Hypercholesterolemia: Yes Aneurysm: Yes Congestive Heart Failure: No Hypertension: Yes Respiratory Problems Chronic Obstructive Pulmonary Disease (COPD): Yes Asthma: Yes Bronchitis: Yes Emphysema: No Pneumonia: Yes Tuberculosis: No Smoking: No Smoking Exposure: No Stomache/Intestinal Problems Gastroesophageal Reflux Disease: Yes Genital/Urinary Problems Renal Disease: No Musculoskeletal Problems Fibromyalgia: Yes Endocrine Problems Diabetes Mellitus Type 1: No Diabetes Mellitus Type 2: No Blood Problems Sickle Cell Disease: No Psychologic Problems Anxiety: Yes Other Problems Blood Transfusions: No Blood Transfusion Reaction: No Anesthesia Reactions: No Chicken Pox: Yes Cancer: No Subjective Visit Visit for: follow up visit, knee and injections Immunization / Flu Flu Vaccine in the Last 12 Months: No Flu Vaccine Exclusion Criteria: No Exclusion Criteria and Already Received History of Present Illness Chief complaint: Bilateral knee pain HISTORY OF PRESENT ILLNESS I, Devan Ramirez, have obtained verbal consent from the patient, to be recorded during this encounter which may include, but not limited to, medical history, examination, treatment plans, and relevant health information.? Patient was informed that recording will be read and reviewed by myself before inclusion in the medical chart. The patient presents for bilateral knee pain. She reports that the effects of her previous injection have diminished after 2 months, leading to a resurgence of pain. She is seeking another injection to alleviate this discomfort. She also mentions a fall from her bed on 07/27/2025 at 1:00 AM, during which she landed on all fours. This incident resulted in bruising around her ankles and up the back, with some residual bruising still visible. She describes a hard, knot-like sensation in her right knee, which she believes may be due to bone damage. The pain in her right knee is more pronounced than in the left. She is currently on blood thinners. Personal History Red flag PMH: none Pain Pain level (0-10): 8 Pain duration: ALL DAY Pain location: inside (medial) and anterior Pain quality: sharp, dull, aching, shocking and electric Pain timing: night and increases with activity Associated signs & symptoms: numbness, weakness, stiffness and none Ambulatory data Ambulatory device: none Walking distance (minutes): 1 Treatments Number of previous injections: 3 Improvement with previous injections: Yes Number of Physical Therapy sessions: 0 Improvement with PT: No Improvement with NSAIDS: no Review of Systems Review of Systems: All systems negative unless otherwise noted in HPI.
== END 2025-08-17 15:53 | disposition home or self-care (01) ==
PROVIDERS: PCP Nurse Practitioner Family; Referring Provider Nurse Practitioner Family; Supervising Provider Orthopaedic Surgery Adult Reconstructive Orthopaedic Surgery; Visit Provider Orthopaedic Surgery Adult Reconstructive Orthopaedic Surgery
DX: M17.0 Bilateral primary osteoarthritis of knee (principal); M25.562 Pain in left knee; M25.561 Pain in right knee; I10 Essential (primary) hypertension; E78.00 Pure hypercholesterolemia, unspecified; M79.7 Fibromyalgia
CPT/HCPCS: 20610; 99213; J1010; J2795; G0463

== ENCOUNTER 2025-11-16 11:01 | Outpatient (AMB) | payer MEDICAID, SELFPAY ==
--- NOTE | 2025-11-16 11:22 | ORTHONT_ITS ---
Vital signs 11/16/25 11:32 Height 1.75 m Height Method Stated Weight 133.583 kg Weight Measurement Method Standing Scale BMI 43.6 BP 118/82 Blood Pressure Source Automatic Cuff Blood Pressure Location Left Upper Arm Position Sitting Respiration 18 Pulse 78 Pulse Source Monitor Temp 96.7 F L Temp Source Temporal Artery Scan Pulse Oximetry (%) 90 L Oxygen Delivery Method Room Air Med/Allergies Allergies & Medications Allergies codeine Allergy (Mild, Verified 11/16/25 11:33) Redness of Skin Sulfa (Sulfonamide Antibiotics) Allergy (Mild, Verified 11/16/25 11:33) Rash Penicillins Allergy (Unknown, Verified 11/16/25 11:33) Rash Medication Reconciliation apixaban 5 mg tablet (Eliquis) 5 mg PO BID 12/02/23 [History Confirmed 11/16/25] albuterol sulfate 90 mcg/actuation aerosol inhaler 2 puff inhalation QID PRN SOB 05/19/24 [History Confirmed 11/16/25] budesonide-formoterol HFA 160 mcg-4.5 mcg/actuation aerosol inhaler (Symbicort) 2 puff inhalation BID 05/19/24 [History Confirmed 11/16/25] clonazepam 1 mg tablet 1 mg PO QDAY 05/19/24 [History Confirmed 11/16/25] cyclobenzaprine 10 mg tablet 10 mg PO TID PRN Pain 05/19/24 [History Confirmed 11/16/25] famotidine 40 mg tablet 40 mg PO QDAY 05/19/24 [History Confirmed 11/16/25] fexofenadine 180 mg tablet (Allergy Relief (fexofenadine)) 180 mg PO QDAY 05/19/24 [History Confirmed 11/16/25] hydrocodone 10 mg-acetaminophen 325 mg tablet 1 tab PO PRN PRN Pain 05/19/24 [History Confirmed 11/16/25] metoprolol succinate 25 mg tablet,extended release 24 hr 25 mg PO QDAY 05/19/24 [History Confirmed 11/16/25] omeprazole 40 mg capsule,delayed release 40 mg PO QDAY 05/19/24 [History Confirmed 11/16/25] semaglutide 1 mg/dose (4 mg/3 mL) subcutaneous pen injector (Ozempic) 1 mg subcut QWEEK 06/25/24 [History Confirmed 11/16/25] hydrocodone 5 mg-acetaminophen 325 mg tablet 1 tab PO Q8H PRN pain #14 tabs 05/28/25 [Rx Confirmed 11/16/25] Exam Exam Patient is in no acute distress and is cooperative with the examination today. Breathing is nonlabored. In no respiratory distress. Bilateral extremities were evaluated and demonstrates sensation intact to light touch. Palpable pedal pulses are present. No significant edema is present. Bilateral hips were examined. The patient has no pain with log roll of the hips. Internal rotation to 30 degrees and external rotation to 30 degrees is painless. Negative FADIR. The left knee was examined. The left knee is in [varus] alignment. Range of motion from [0-115] degrees. Knee is stable to varus and valgus as well as AP tr anslation with <5mm. Patient has a [negative] McMurrays. There is [no] pain with patellofemoral compression and [no] crepitus noted. The knee is [tender] to palpation [medially]. The right knee was also examined. The right knee is in [varus] alignment. Range of motion from [0-120] degrees. Knee is stable to varus and valgus as well as AP translation with <5mm. Patient has a [negative] McMurrays. There is [no] pain with patellofemoral compression and [no] crepitus noted. The knee is [tender] to palpation [medially]. Nonweightbearing x-rays were reviewed by me. This demonstrates bilateral knee arthritis of significant severity. Assessment and Plan Problem List (1) Degenerative arthritis of knee, bilateral: Status: Acute Plan: ASSESSMENT AND PLAN 1. Bilateral knee pain: The bilateral knee pain is likely due to osteoarthritis, as evidenced by the pgyx-lb-hmio condition in both knees. Given the extensive medical comorbidities and current use of blood thinners, the administration of anti-inflammatory medications is not advisable. Cortisone injections were administered today to alleviate the pain. Tylenol was recommended for pain management. The patient inquired about receiving injections every 60 days, but it was advised against due to the standard protocol. The patient was educated on the limitations of using NSAIDs due to blood thinners and the potential side effects of other medications. The goal is to manage pain effectively while minimizing risks associated with her comorbidities. Assessment Assessment: Recommend knee cortisone injection as patient would like to proceed with conservative treatment at this time. The risks and benefits of the procedure were reviewed with the patient and patient gave verbal consent to continue with the procedure. Procedure: performed by Dr. Ramirez Using sterile technique the Right knee was thoroughly prepped with alcohol, and approximately 1 cc of Depo-Medrol 80mg/mL and 4 cc of 0.2% ropivacaine was injected without resistance into the medial tibial femoral joint space. The patient tolerated the procedure. Recommend knee cortisone injection as patient would like to proceed with conservative treatment at this time. The risks and benefits of the procedure were reviewed with the patient and patient gave verbal consent to continue with the procedure. Procedure: performed by Dr. Ramirez Using sterile technique the leftknee was thoroughly prepped with alcohol, and approximately 1 cc of Depo- Medrol 80mg/mL and 4 cc of 0.2% ropivacaine was injected without resistance into the medial tibial femoral joint space. The patient tolerated the procedure. Office Procedures GNS Level of Care Nursing/Assessment Patient Status: Established Patient Nursing Assessment/Reassesment: Medication Reconciliation, Update PMH in EMR and Vital Signs Coordination of Care: Complex Care and Chronic Disease 1-5, Education Complex Pt/Fam, Consent,records obtained, informed consent, Results/Orders obtained and Staff clarify orders Established Patient Charge Established Patient Point Assignment: 95 Established Patient Point Charge: EP Level 3 (80-115) Surgical Proc/IM SQ injection Minor Surgical Procedure: Yes (BILATERAL KNEE INJ) Medication Given Medication Given Medication Given: Yes Documented Dose Given: 2 Route: Infiitration Medication Given Medication Given Medication Given: Yes Documented Dose Given: 8 Route: Infiitration Office Meds methylprednisolone acetate 80 mg/mL suspension for injection Performing Provider: Devan Ramirez MD Performing Location: [facility] Administered by: Devan Ramirez MD on 11/16/25 11:45 Dose Route Admin Location Dispensed Lot Number Expiration Date Pack age [facility] Magnetic Tape Typewriter Operator 160 mg intra-articular KNEE 2 mL [id number] 07/24/27 [address]-9 [id number] [employer] ropivacaine (PF) 2 mg/mL (0.2 %) injection solution Performing Provider: Devan Ramirez MD Performing Location: [facility] Administered by: Devan Ramirez MD on 11/16/25 11:45 Dose Route Admin Location Dispensed Lot Number Expiration Date Pack age [facility] Magnetic Tape Typewriter Operator 40 mL Infiltration KNEE 40 mL [id number] 04/23/27 3089-0663-73 [id number] RANDY RUTHERFORD MA Intake Visit Data Collection New Patient or Established: Established Patient (seen at [facility] within 3 years) Reason for Visit:: 3MTH BL KNEE INJ Seen by Clinical Staff ONLY (RN/MA): No Director Of Design Required: No PCP or OBGYN visit in last 3 months: Yes Hx Now: No Do You Feel Safe at Home: Yes Authorities Contacted: N/A Questionairres Past Medical History Past Medical History Have you ever been diagnosed with any of the following: Neurological Problems Seizures: No Migraine: Yes Cardiology Problems Angina: Yes Hypercholesterolemia: Yes Aneurysm: Yes Congestive Heart Failure: No Hypertension: Yes Respiratory Problems Chronic Obstructive Pulmonary Disease (COPD): Yes Asthma: Yes Bronchitis: Yes Emphysema: No Pneumonia: Yes Tuberculosis: No Smoking: No Smoking Exposure: No Stomache/Intestinal Problems Gastroesophageal Reflux Disease: Yes Genital/Urinary Problems Renal Disease: No Musculoskeletal Problems Fibromyalgia: Yes Endocrine Problems Diabetes Mellitus Type 1: No Diabetes Mellitus Type 2: No Blood Problems Sickle Cell Disease: No Psychologic Problems Anxiety: Yes Other Problems Blood Transfusions: No Blood Transfusion Reaction: No Anesthesia Reactions: No Chicken Pox: Yes Cancer: No Subjective Visit Visit for: follow up visit, knee and injections Immunization / Flu Flu Vaccine in the Last 12 Months: No Flu Vaccine Exclusion Criteria: No Exclusion Criteria and Already Received History of Present Illness Chief complaint: Bilateral knee pain HISTORY OF PRESENT ILLNESS I, Devan Ramirez, have obtained verbal consent from the patient, to be recorded during this encounter which may include, but not limited to, medical history, examination, treatment plans, and relevant health information.? Patient was informed that recording will be read and reviewed by myself before inclusion in the medical chart. The patient presents for bilateral knee pain. She reports that the effects of her previous injection have diminished after 2 months, leading to a resurgence of pain. She is seeking another injection to alleviate this discomfort. She also mentions a fall from her bed on 07/27/2025 at 1:00 AM, during which she landed on all fours. This incident resulted in bruising around her ankles and up the back, with some residual bruising still visible. She describes a hard, knot-like sensation in her right knee, which she believes may be due to bone damage. The pain in her right knee is more pronounced than in the left. She is currently on blood thinners. Personal History Red flag PMH: none Pain Pain level (0-10): 8 Pain duration: ALL DAY Pain location: inside (medial) and anterior Pain quality: sharp, dull, aching, shocking and electric Pain timing: night and increases with activity Associated signs & symptoms: numbness, weakness, stiffness and none Ambulatory data Ambulatory device: none Walking distance (minutes): 1 Treatments Number of previous injections: 3 Improvement with previous injections: Yes Number of Physical Therapy sessions: 0 Improvement with PT: No Improvement with NSAIDS: no Review of Systems Review of Systems: All systems negative unless otherwise noted in HPI.
[2025-11-16 11:32] VITALS: BP 118/82; PULSE 78; RESP 18; TEMP 35.9; O2SAT 90; BMI 43.6
== END 2025-11-16 11:39 | disposition home or self-care (01) ==
PROVIDERS: PCP Nurse Practitioner Family; Referring Provider Nurse Practitioner Family; Supervising Provider Orthopaedic Surgery Adult Reconstructive Orthopaedic Surgery; Visit Provider Orthopaedic Surgery Adult Reconstructive Orthopaedic Surgery
DX: M17.0 Bilateral primary osteoarthritis of knee (principal); M25.562 Pain in left knee; M25.561 Pain in right knee; I10 Essential (primary) hypertension
CPT/HCPCS: 20610; 99213; J1010; J2795; G0463